=== PATIENT | female | born 1960 | race Caucasian/White ===

== ENCOUNTER 2021-03-31 06:24 | Emergency (ER) | payer OTHER ==
[2021-03-31 06:35] VITALS: BP 138/82; PULSE 75
[2021-03-31] MEDS ORDERED: Alum Hydrox/Mag Hydrox/Simeth 30 ML, Lidocaine 2% 15 ML PO STA ×2 (06:44)
--- NOTE | 2021-03-31 06:58 | EDM.PDOC ---
<Santiago Holden - Last Filed: 03/31/21 07:16> ED HPI GENERAL MEDICAL PROBLEM - General Chief Complaint: Chest Pain Stated Complaint: CHEST PAIN Time Seen by Provider: 03/31/21 06:34 Source of Information: Reports: Patient, Family () History Limitations: Reports: No Limitations - History of Present Illness INITIAL COMMENTS - FREE TEXT/NARRATIVE: Mrs. Cheatham is a 60-year-old woman who now presents the ED stating that she developed a crampy retrosternal chest pain around 21:00 last night that radiates up to both sides of her neck, and down to both upper extremities, worse on the left than the right. She has associated nausea and dyspnea, although no diaphoresis or sense of impending doom. She states that the pain waxes and wanes, and feels better if she is upright and walking around, worse if she is supine. She reports that she has had these same symptoms on and off for about 2 weeks, but this is the first time she has sought medical evaluation for them. The patient states that she has small intestinal bacterial overgrowth (SIBO), which often causes her to have pain in her chest, so she has difficulty distinguishing if her current symptoms are new or due to SIBO. The patient states that she took 281 mg aspirins around midnight last night, without improvement in her symptoms. Here in the ED, the patient is found to be hemodynamically stable, afebrile, saturating 100% on room air. She appears to be somewhat anxious, although in no acute distress. Other than the above symptoms, the patient denies having a recent fever, chills, sore throat, ear pain, nasal or sinus congestion, cough, dyspnea, chest pain, palpitations, nausea, vomiting, constipation, diarrhea, abdominal pain, urinary symptoms, recent weight gain or weight loss, recent bloody bowel movements or black bowel movements, recent joint aches, headaches, or rashes. The patient's PCP is [facility]. She has not received a COVID vaccination. Chest Pain Score (Numeric/FACES): 4 - Related Data Allergies Allergy/AdvReac Type Severity Reaction Status Date / Time morphine Allergy Vomiting Verified 03/31/21 06:35 Home Meds: Home Meds . [No Known Home Meds] 03/31/21 [History] Past Medical History Gastrointestinal History: Reports: Other (See Below) (Small intestinal bacterial overgrowth (SIBO)) Psychiatric History: Reports: Depression (untreated) - Past Surgical History Female Surgical History: Reports: Hysterectomy (partial) Social & Family History - Tobacco Use Tobacco Use Status *Q: Never Tobacco User - Caffeine Use Caffeine Use: Reports: Coffee Other Caffeine Use: decaf - Alcohol Use Alcohol Use History: Yes Alcohol Use Frequency: Socially - Recreational Drug Use Recreational Drug Use: No - Living Situation & Occupation Living situation: Reports: , with Spouse Occupation: Employed ([employer]) ED ROS GENERAL - Review of Systems Review Of Systems: Comprehensive ROS is negative, except as noted in HPI. ED EXAM, GENERAL - Physical Exam Exam: See Below Exam Limited By: No Limitations General Appearance: Alert, WD/WN, No Apparent Distress Eye Exam: Bilateral Eye: EOMI, Normal Inspection Ears: Normal External Exam, Hearing Grossly Normal Nose: Normal Inspection Throat/Mouth: Normal Inspection, Normal Lips, Normal Voice, No Airway Compromise Head: Atraumatic, Normocephalic Neck: Normal Inspection, Full Range of Motion Respiratory/Chest: No Respiratory Distress, Lungs Clear, Normal Breath Sounds, No Accessory Muscle Use, Chest Non-Tender, Other (Pain not induced by having the patient press her hands together in front of her chest with outstretched arms, or by crossing either arm across her chest). No: Decreased Breath Sounds, Crackles, Rhonchi, Wheezing, Stridor, Prolonged Expiration Cardiovascular: Normal Peripheral Pulses, Regular Rate, Rhythm, No Edema, No Gallop, No JVD, No Murmur, No Rub Peripheral Pulses: 3+: Radial (L), Radial (R) GI/Abdominal: Normal Bowel Sounds, Soft, Non-Tender (including the epigastrium), No Organomegaly, No Distention, No Abnormal Bruit, No Mass Back Exam: Normal Inspection, Full Range of Motion, NT Extremities: Normal Inspection, Normal Range of Motion, No Pedal Edema, Normal Capillary Refill Neurological: Alert, Oriented, Normal Cognition, No Motor/Sensory Deficits Psychiatric: Normal Affect Skin Exam: Warm, Dry, Intact, Normal Color, No Rash #1 Interpretation EKG Date: 03/31/21 Time: 06:30 Rhythm: NSR Rate (Beats/Min): 72 [place]: Normal (Borderline LAD) P-Wave: Present QRS: Normal ST-T: Normal QT: Normal Comparison: NA - No Prior EKG Course - Re-Assessments/Exams Free Text/Narrative Re-Assessment/Exam: 03/31/21 06:47 As above, the patient developed a crampy retrosternal chest pain radiating up to both sides of her neck and down both arms, worse on the left than the right, associated with nausea and dyspnea, made worse if she is supine, better if she is up and walking around, that has been coming and going for the past 2 weeks, and waxing and waning since 21:00 last night. An ECG, obtained at triage, shows no ischemic changes. Her physical exam is unremarkable. I have ordered a GI cocktail, to see if that helps, along with a work-up that includes numerous blood tests, a swab for the SARS-CoV-2 virus, and a chest x-ray. 03/31/21 07:04 The patient reports that she had significant improvement in her symptoms following the GI cocktail. We will continue with the work-up that I already ordered, but I will add famotidine. 03/31/21 07:[address] Keating, and care of the patient turned over to him at this time, for change of shift. Departure - Departure Disposition: Home, Self-Care 01 Clinical Impression: Chest pain - Discharge Information Instructions: Nonspecific Chest Pain, Adult Referrals: PCP,Not In Area [Primary Care Provider] - Forms: ED Department Discharge Additional Instructions: Return if condition worsens May resume general activity and regular diet as tolerated Continue usual medications Take 2 baby aspirin (162 mg) daily until advised further by provider Follow-up with primary care provider is recommended Call [facility] cardiology at [phone] for appointment tomorrow with Dr. Villanueva (cardiology) <Robert Keating - Last Filed: 04/02/21 06:08> Course - Vital Signs Last Recorded V/S: Last Vital Signs Temp 36.2 C 03/31/21 06:31 Pulse 75 03/31/21 06:31 Resp 16 03/31/21 06:31 BP 138/82 03/31/21 06:31 Pulse Ox 100 03/31/21 06:31 - Orders/Labs/Meds Labs: Laboratory Tests 03/31/21 03/31/21 03/31/21 Range/Units 06:52 06:52 06:52 WBC 4.15 (3.98-10.04) K/mm3 RBC 4.25 (3.98-5.22) M/mm3 Hgb 13.0 (11.2-15.7) gm/dl Hct 39.7 (34.1-44.9) % MCV 93.4 (79.4-94.8) fl MCH 30.6 (25.6-32.2) pg MCHC 32.7 (32.2-35.5) g/dl RDW Std Deviation 41.9 (36.4-46.3) fL Plt Count 194 (182-369) K/mm3 MPV 11.6 (9.4-12.3) fl Neutrophils % (Manual) 51 (40-60) % Band Neutrophils % 0 (0-10) % Lymphocytes % (Manual) 39 (20-40) % Atypical Lymphs % 0 % Monocytes % (Manual) 3 (2-10) % Eosinophils % (Manual) 6 H (0.7-5.8) % Basophils % (Manual) 1 (0.1-1.2) Platelet Estimate Adequate RBC Morph Comment Normal D-Dimer, Quantitative < 0.19 L (0.19-0.50) mg/L Sodium 144 (136-145) mEq/L Potassium 4.0 (3.5-5.1) mEq/L Chloride 106 (98-107) mEq/L Carbon Dioxide 29 (21-32) mEq/L Anion Gap 13.0 (5-15) BUN 7 (7-18) mg/dL Creatinine 0.8 (0.55-1.02) mg/dL Est Cr Clr Drug Dosing 70.01 mL/min Estimated GFR (MDRD) > 60 (>60) mL/min BUN/Creatinine Ratio 8.8 L (14-18) Glucose 105 H (70-99) mg/dL Calcium 8.8 (8.5-10.1) mg/dL Magnesium 1.9 (1.8-2.4) mg/dL Total Bilirubin 0.6 (0.2-1.0) mg/dL AST 26 (15-37) U/L ALT 41 (14-59) U/L Alkaline Phosphatase 67 (46-116) U/L Troponin I < 0.017 (0.00-0.056) ng/mL NT-Pro-B Natriuret Pep (0-125) pg/mL Total Protein 6.6 (6.4-8.2) g/dl Albumin 3.8 (3.4-5.0) g/dl Globulin 2.8 gm/dL Albumin/Globulin Ratio 1.4 (1-2) 03/31/21 Range/Units 06:52 WBC (3.98-10.04) K/mm3 RBC (3.98-5.22) M/mm3 Hgb (11.2-15.7) gm/dl Hct (34.1-44.9) % MCV (79.4-94.8) fl MCH (25.6-32.2) pg MCHC (32.2-35.5) g/dl RDW Std Deviation (36.4-46.3) fL Plt Count (182-369) K/mm3 MPV (9.4-12.3) fl Neutrophils % (Manual) (40-60) % Band Neutrophils % (0-10) % Lymphocytes % (Manual) (20-40) % Atypical Lymphs % % Monocytes % (Manual) (2-10) % Eosinophils % (Manual) (0.7-5.8) % Basophils % (Manual) (0.1-1.2) Platelet Estimate RBC Morph Comment D-Dimer, Quantitative (0.19-0.50) mg/L Sodium (136-145) mEq/L Potassium (3.5-5.1) mEq/L Chloride (98-107) mEq/L Carbon Dioxide (21-32) mEq/L Anion Gap (5-15) BUN (7-18) mg/dL Creatinine (0.55-1.02) mg/dL Est Cr Clr Drug Dosing mL/min Estimated GFR (MDRD) (>60) mL/min BUN/Creatinine Ratio (14-18) Glucose (70-99) mg/dL Calcium (8.5-10.1) mg/dL Magnesium (1.8-2.4) mg/dL Total Bilirubin (0.2-1.0) mg/dL AST (15-37) U/L ALT (14-59) U/L Alkaline Phosphatase (46-116) U/L Troponin I (0.00-0.056) ng/mL NT-Pro-B Natriuret Pep 84 (0-125) pg/mL Total Protein (6.4-8.2) g/dl Albumin (3.4-5.0) g/dl Globulin gm/dL Albumin/Globulin Ratio (1-2) Meds: Medications Discontinued Medications Generic Name Dose Route Start Last Admin Trade Name Beniq PRN Reason Stop Dose Admin Al Hydroxide/Mg Hydroxide 30 0 ml 03/31/21 06:44 03/31/21 06:50 ml/ Lidocaine HCl 15 ml PO 03/31/21 06:45 45 ml ONETIME STA Administration Famotidine 40 mg 03/31/21 07:05 03/31/21 07:32 Famotidine 20 Mg Tab PO 03/31/21 07:06 Not Given ONETIME STA - Re-Assessments/Exams Free Text/Narrative Re-Assessment/Exam: 03/31/21 09:35 Care patient was seen for Dr. Holden at 0700 History was reviewed She has had intermittent occurrence of chest discomfort over the past 2 weeks Endorses radiation of pain to neck and upper extremities bilaterally Endorses nonspecific sleep disturbance during this time No specific activity intolerance HEART score determination was "low" (3) Cardiac stress testing was advised for further evaluation Consideration for admission/transfer versus timely outpatient follow-up was discussed Patient expressed preference for admission if possible [address] Jeronimo (hospitalist) No stress testing available here until 04/06/2021 0916 Patient was discussed with Dr. Ugarte (cardiology at [facility]) Dr. Ugarte advised doubtful availability of stress testing before 04/06/2021 [address] Villanueva (cardiology at [facility]) Dr. Villanueva offered to see patient tomorrow for further discussion Patient was felt to be stable for outpatient follow-up Return precautions were provided Departure - Departure Time of Disposition: 09:38 - Discharge Information *PRESCRIPTION DRUG MONITORING PROGRAM REVIEWED*: Not Applicable *COPY OF PRESCRIPTION DRUG MONITORING REPORT IN PATIENT EZEKIEL: Not Applicable
[2021-03-31] MEDS ORDERED: Famotidine 20 MG Tab PO STA (07:05)
--- NOTE | 2021-03-31 08:10 | CR ---
Chest: 2 views of the chest were obtained. Comparison: No prior chest imaging is available. Heart size and mediastinum are within normal limits. Lungs are clear with no acute parenchymal change. Slight scoliosis is noted within the spine. Impression: 1. Nothing acute is appreciated on 2 view chest x-ray. Diagnostic code #2
== END 2021-03-31 09:47 | disposition home or self-care (01) ==
LOC: JD.ED 06:24
DX: R07.2 Precordial pain (principal); Z88.5 Allergy status to narcotic agent
CPT/HCPCS: 36415; 71046; 80053; 83735; 83880; 84484; 85007; 85027; 85379; 93005; 99285; A9270; 93010; 99283